=== PATIENT | female | born 1975 | race Caucasian/White ===

== ENCOUNTER → 2017-01-02 | Outpatient (CLI) | payer BC ==
--- NOTE | 2017-01-02 16:07 | KCIC ---
Examination: Ultrasound pelvis. HISTORY History of pelvic pain. COMPARISON None available. FINDINGS The uterus, right ovary are not identified likely surgically absent. The left ovary measures 2.6 x 1.7 x 1.9 centimeters. There is a cystic structure identified in the left ovary measuring 1.5 x 1.4 x 1.5 centimeters. IMPRESSION 1. Cystic structure identified in the left ovary measuring 1.5 centimeters probably a cyst. Followup examination is recommended document stability. Electronically signed by: Gil Alvarado (Jan 02, 2017 16:06:15)
== END | disposition home or self-care (01) ==
LOC: KCIC US 15:35
PROVIDERS: ATTEND Nurse Practitioner Women's Health
DX: R10.2 Pelvic and perineal pain (principal)
CPT/HCPCS: 76856